=== PATIENT | female | born 1945 | race Two or more races ===

== ENCOUNTER 2019-06-01 11:03 | Emergency (ER) | payer OTHER ==
[~2019-06-01] VITALS: Ht 154.9 cm; Wt 53.5 kg
[~2019-06-01 11:03] MED LIST: DIOVAN320 MG; FLOVENT 110MCG7.9 GM PO; KOMBIGLYZE XR1 EAC1; LOSARTAN-HCTZ1 EAC1 PO; OMEPRAZOLE20 M1; PROVENTIL3 ML/2.5 M IH; VALSARTAN-HCTZ1 EAC3; ZYNCOF 20-400120 ML PO
[2019-06-01] MEDS ORDERED: NEURONTIN300 MG (12:03)
[2019-06-01] MEDS ORDERED: MONTELUKAST SOD10 MG (12:03)
== END 2019-06-01 13:40 | disposition home or self-care (01) ==
LOC: ER 11:03 → EMR PED 11:35 → ER 13:40
DX: M79.672 Pain in left foot (principal); M79.671 Pain in right foot